=== PATIENT | female | born 1950 | race Caucasian/White ===

== ENCOUNTER 2017-05-24 10:04 | Outpatient (CLI) | payer MEDICARE | END 2017-05-24 10:05 | disposition home or self-care (01) | LOC: BUREKG 10:04 | PROVIDERS: ATTEND Family Medicine | DX: I49.9 Cardiac arrhythmia, unspecified (principal) | CPT/HCPCS: 93005; 93010 ==

== ENCOUNTER 2018-03-21 11:48 | Outpatient (CLI) | payer MEDICARE ==
--- NOTE | 2018-03-22 07:30 | RAD ---
LEFT KNEE 2 VIEWS: DATE: 03/21/2018. FINDINGS: No fracture or area of bony destruction is seen. 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 The joint space shows no acute change. No large effusions are seen. IMPRESSION: No acute bony finding. POS: HOME
== END 2018-03-21 11:49 | disposition home or self-care (01) ==
LOC: BURRAD 11:48
PROVIDERS: ATTEND Nurse Practitioner Family
DX: R29.898 Other symptoms and signs involving the musculoskeletal system (principal)
CPT/HCPCS: 36415; 85379

== ENCOUNTER 2018-03-23 11:20 | Outpatient (CLI) | payer MEDICARE ==
--- NOTE | 2018-03-23 20:36 | ULT ---
NONVASCULAR ULTRASOUND OF THE LEFT KNEE 03/23/18 Ultrasonography of the popliteal fossa was done for evaluation of pain and swelling in this region. A cyst is seen in the popliteal fossa measuring 2.5 x 1.2 x 4.3 cm. Internally, it is almost purely cy stic. There is no vascular flow in it. IMPRESSION: Vallecillo's cyst. POS: HOME
== END 2018-03-23 11:21 | disposition home or self-care (01) ==
LOC: BURULT 11:20
PROVIDERS: ATTEND Nurse Practitioner Family
DX: M79.605 Pain in left leg (principal); R29.898 Other symptoms and signs involving the musculoskeletal system; M71.22 Synovial cyst of popliteal space [Baker], left knee
CPT/HCPCS: 76882